=== PATIENT | male | born 1945 | race Caucasian/White ===

== ENCOUNTER → 2016-04-29 | Day surgery (SDC) | payer OTHER ==
[2016-04-27 07:41] VITALS: Ht 180.3 cm; Wt 101.4 kg
[~2016-04-29] VITALS: Ht 180.3 cm; Wt 101.4 kg
[~2016-04-29] MED LIST: ASPI325T39 PO; ATEN-173 PO; GLIP-199 PO; INSDGI SC; LIDOCAINE HCL 2% 2 ML VIAL (20MG/ML) ONE; LISI-725 PO; METF1TAB53 PO; NVLG SC; OMEGCAP2 PO; PROPOFOL IV EMULSION 10 MG/ML 20 ML VIAL IV ONE; SIMV80TA2 PO; SODIUM CHLORIDE 0.9% 500ML 500 ML IV ONE; ZNTT/150 PO
--- NOTE | 2016-04-29 09:22 | Endo History and Physical ---
History & Physical Date of Service: Apr 29, 2016. Chief Complaint: SCREENING FOR COLON CANCER, FAMILY HX-MOTHER HAD COLON CANCER Referring Physician: DR. PARMINDER LAO ([place] TE[place] AT [place]) History of Present Illness Screening colonoscopy Past Surgical History Hx Cardiac Surgery: Yes (HEART CATHS, STENTS X6, "BYPASS ALL STENTS") Hx Internal Defibrillator: No Hx Pacemaker: No Hx Abdominal Surgery: Yes (YANET) Hx of Implantable Prosthesis: No Hx Post-Op Nausea and Vomiting: No Hx Cancer Surgery: No Hx Thoracic Surgery: No Hx Orthopedic: Yes (LT ULNAR NERVE REPAIR) Hx Urinary Tract Surgery: No Family History Colon CA Social History Smoking Status: Former Smoker Hx Substance Use: No Hx Alcohol Use: Yes (RARELY) Allergies Coded Allergies: No Known Allergies (Verified , 04/29/16) Current Medications Reported Home Medications Medications Dose Route/Sig Max Daily Dose Days Date Category Aspirin Ec (Aspirin) 325 Mg Tab 325 Mg PO DAILY 04/27/16 Reported Fish Oil ([place]-3 Fatty Acids) 1 Cap Cap 1 Tab PO QAM 04/27/16 Reported Lantus (Insulin Glargine) 100 Unit/Ml Inj 54 Units SC HS 04/27/16 Reported Novolog (Insulin Aspart) 100 Units/Ml Inj 2 Units SC TIDM 04/27/16 Reported Glipizide Er (Glipizide) 10 Mg Tab 1 Tab PO BID 04/27/16 Reported Zocor (Simvastatin) 80 Mg Tab 80 Mg PO HS 04/27/16 Reported Tenormin (Atenolol) 25 Mg Tab 25 Mg PO QAM 04/27/16 Reported Zantac (Ranitidine HCl) 150 Mg Tab 150 Mg PO BID 04/27/16 Reported Zestril (Lisinopril) 20 Mg Tab 20 Mg PO QAM 04/27/16 Reported Glucophage Ext Rel (Metformin Hcl) 1,000 Mg Tab 1,000 Mg PO BID 04/27/16 Reported Vital Signs Weight (Kilograms): 101.36 Height (Feet): 5 Height (Inches): 11 Date Time Temp Pulse Resp B/P Pulse Ox O2 Delivery O2 Flow Rate FiO2 04/29/16 08:40 36.4 74 18 161/76 97 Room Air Physical Exam General Appearance: no apparent distress Respiratory/Chest: Auscultation: breath sounds normal Cardiovascular: Heart Auscultation: RRR Abdomen: Inspection & Palpation: soft, no masses Assessment and Plan stable for colonoscopy
--- NOTE | 2016-04-29 09:54 | Discharge Instructions ---
Endoscopy Patient Instructions Date / Procedure(s) Performed Apr 29, 2016. Allergy Information Coded Allergies: No Known Allergies (Verified , 04/29/16) Discharge Date / Findings Apr 29, 2016. small colon polyps. Medication Instructions Stopped Medication(s): ASPIRIN-LAST DOSE 04/29/16 METFORMIN-LAST DOSE 04/26/16 AT 2100 Provider Instructions Activity Restrictions - No exercising or heavy lifting for 24 hours. - Do not drink alcohol the day of the procedure. - Do not drive a car or operate machinery until the day after the procedure. - Do not make any important decisions or sign important papers in 24 hours after the procedure. Following Day: - Return to full activity which may include returning to work/school. Diet Start your diet with liquids and light foods (jello, soup, juice, toast). Then eat your usual diet if not nauseated. Treatment For Common After Affects For mild abdominal pain, bloating, or excessive gas: - Rest - Eat lightly - Lie on right side Follow-Up Information Follow-up with DR. PARMINDER LAO ([facility] AT [place]) as scheduled Anesthesia Information What You Should Know You have had a procedure that required some medicine to reduce anxiety and discomfort. This treatment is called moderate sedation. After receiving the treatment, you may be sleepy, but you will be able to breathe on your own. The effects of the treatment may last for several hours. Follow these instructions along with Activity/Diet recommendations noted above: * Do NOT do anything where dizziness or clumsiness would be dangerous. * Rest quietly at home today, then you can be up and about tomorrow. * Have a responsible person stay with you the rest of today. * You may have had an I.V. today. If so, you may take the dressing off later today. Recommendations Call your doctor if: * Trouble breathing * Continuous vomiting for more than 24 hours * Temperature above 101 degrees * Severe abdominal pain or bloating * Pain not relieved by pain medicine ordered * There is increased drainage or redness from any incision * A large amount of rectal bleeding greater than 2-3 tablespoons. (If you had a polyp/s removed or have hemorrhoids, a small amount of blood - from the rectum is to be expected.) * You have any unanswered questions or concerns. IN THE EVENT OF A SERIOUS EMERGENCY, GO TO THE NEAREST EMERGENCY ROOM Your discharge instructions were prepared by provider Fredi Llanos. Patient Instructions Signature Page Roberth Partner Patient (or Guardian) Signature/Date: I have read and understand the instructions given to me by my caregivers. Caregiver/RN/Doctor Signature/Date: The above-named patient and/or guardian has received patient instructions on this date. + Original Patient Signature Page (only) stays with chart. Please make copy for patient.
--- NOTE | 2016-04-29 10:02 | GI REPORT ---
Procedure Date: 04/29/2016 8:47 AM Procedure: Colonoscopy Indications: Screening for colorectal malignant neoplasm Medicines: See the Anesthesia note for documentation of the administered medications Complications: No immediate complications. Estimated Blood Loss: Estimated blood loss was minimal. Procedure: Pre-Anesthesia Assessment: - Prior to the procedure, a History and Physical was performed, and patient medications, allergies and sensitivities were reviewed. The patient's tolerance of previous anesthesia was reviewed. - The risks and benefits of the procedure and the sedation options and risks were discussed with the patient. All questions were answered and informed consent was obtained. - Patient identification and proposed procedure were verified prior to the procedure by the physician and the nurse. The procedure was verified in the pre-procedure area. - Pre-procedure physical examination revealed no contraindications to sedation. - After reviewing the risks and benefits, the patient was deemed in satisfactory condition to undergo the procedure. After I obtained informed consent, the scope was passed under direct vision. Throughout the procedure, the patient's blood pressure, pulse, and oxygen saturations were monitored continuously. The On-site loaner was introduced through the anus and advanced to the cecum, identified by appendiceal orifice and ileocecal valve. The colonoscopy was performed without difficulty. The patient tolerated the procedure well. The quality of the bowel preparation was good. Findings: The perianal and digital rectal examinations were normal. A 4 mm polyp was found in the ascending colon. The polyp was sessile. The polyp was removed with a cold snare. Resection and retrieval were complete. Verification of patient identification for the specimen was done by the physician and nurse using the patient's name and medical record number. Estimated blood loss was minimal. A 3 mm polyp was found at 40 cm proximal to the anus. The polyp was sessile. The polyp was removed with a cold snare. Resection and retrieval were complete. Verification of patient identification for the specimen was done by the physician and nurse using the patient's name and medical record number. Estimated blood loss was minimal. Multiple small-mouthed diverticula were found in the sigmoid colon, in the descending colon and in the ascending colon. No additional abnormalities were found on retroflexion. Impression: - One 4 mm polyp in the ascending colon, removed with a cold snare. Resected and retrieved. - One 3 mm polyp at 40 cm proximal to the anus, removed with a cold snare. Resected and retrieved. - Diverticulosis in the sigmoid colon, in the descending colon and in the ascending colon. Recommendation: - Await pathology results. - Discharge patient to home. Fredi Llanos M.D. Fredi Llanos MD 04/29/2016 10:01:16 AM This report has been signed electronically. Note Initiated On: 04/29/2016 8:47 AM
[2016-04-29 10:23] VITALS: BP 185/79; PULSE 67; O2SAT 97
--- NOTE | 2016-04-29 10:45 | Anesthesiology Progress Note ---
Anesthesia Post Op Note Date & Time Apr 29, 2016 at 10:44 Vital Signs Pain Intensity: 0 Vital Signs Past 12 Hours Date Time Temp Pulse Resp B/P Pulse Ox O2 Delivery O2 Flow Rate FiO2 04/29/16 10:23 67 16 185/79 97 Room Air 04/29/16 10:19 66 188/82 04/29/16 10:12 68 190/66 04/29/16 10:08 72 16 190/80 98 Room Air 04/29/16 09:53 67 16 103/51 96 Room Air 04/29/16 08:40 36.4 74 18 161/76 97 Room Air Notes Mental Status: alert / awake / arousable, participated in evaluation Pt Amnestic to Procedure: Yes Nausea / Vomiting: adequately controlled Pain: adequately controlled Airway Patency, RR, SpO2: stable & adequate BP & HR: stable & adequate Hydration State: stable & adequate Anesthetic Complications: no major complications apparent
== END | disposition home or self-care (01) ==
LOC: C.GI 07:45
PROVIDERS: ATTEND Internal Medicine Gastroenterology
DX: Z12.11 Encounter for screening for malignant neoplasm of colon (principal); Z80.0 Family history of malignant neoplasm of digestive organs; D12.2 Benign neoplasm of ascending colon; K57.90 Diverticulosis of intestine, part unspecified, without perforation or abscess without bleeding; Z98.890 Other specified postprocedural states; Z95.5 Presence of coronary angioplasty implant and graft; Z87.891 Personal history of nicotine dependence; Z79.82 Long term (current) use of aspirin; Z79.4 Long term (current) use of insulin

== ENCOUNTER 2019-08-07 20:51 | Inpatient (IN) ==
[2019-08-07 21:43] LABS: Basophils # (auto) 0.02 K/uL (0-0.2); Basophils % (auto) 0.1 %; Eosinophils # (auto) 0.08 K/uL (0-0.5); Eosinophils % (auto) 0.5 %; Hematocrit (blood only) 31.2 % (42-52); Hemoglobin 10.6 g/dL (14.0-18.0); Immature Granulocytes # (auto) 0.05 K/uL (0.00-0.02); Immature Granulocytes % (auto) 0.3 %; Lymphocytes # (auto) 1.05 K/uL (1.2-3.4); Lymphocytes % (auto) 6.5 %; Mean Corpuscular Volume 82.3 fL (80-100); Mean Platelet Volume 9.7 fL (7.4-10.4); Monocytes # (auto) 0.94 K/uL (0.11-0.59); Monocytes % (auto) 5.8 %; Neutrophils # (auto) 14.04 K/uL (1.4-6.5); Neutrophils % (auto) 86.8 %; Platelet Count 436 K/uL (130-400); RDW Coefficient of Variation 13.8 % (11.5-14.5); Red Blood Count 3.79 M/uL (4.7-6.1); White Blood Count 16.18 K/uL (4.8-10.8)
[2019-08-07] MEDS ORDERED: ONDANSETRON INJ 2 MG/ML 2 ML VIAL IV STA (21:49)
[2019-08-07 22:00] LABS: Albumin Level 2.6 gm/dl (3.4-5.0); Calcium 9.9 mg/dl (8.5-10.1); Est GFR (African American) 48.4; Est GFR (Non-African American) 41.8; Potassium 4.5 mmol/L (3.5-5.1)
[2019-08-07 22:03] LABS: Albumin Globulin Ratio 0.4 (0.9-2); Bilirubin,Total 0.3 mg/dl (0.2-1); Globulin 5.8 gm/dl (2.5-4.0); Total Protein 8.4 gm/dl (6.4-8.2)
[2019-08-07] MEDS ORDERED: ACETAMINOPHEN 1,000 MG/100 ML VIAL IV STA (22:05)
[2019-08-07] MEDS ORDERED: SODIUM CHLORIDE 0.9% 1000ML 1,000 ML IV STA (22:05)
[2019-08-07] MEDS ORDERED: SODIUM CHLORIDE 0.9% 1000ML 500 ML IV ONE ×2 (22:05→23:26)
[2019-08-07 22:19] LABS: Appearance Urine Clear (Clear); Bacteria Urine Automated Negative (Negative); Bilirubin Urine Negative (Negative); Blood Urine Negative (Negative); Color Urine Dark Yellow; Epithelial Cell Urine Auto 0-5 /lpf (0-5); Glucose Urine UA Negative (Negative); Ketones Urine Trace (Negative); Leukocyte Esterase Urine Negative (Negative); Nitrite Urine Negative (Negative); Protein Urine Trace (Negative); RBC Urine Automated 0-4 /hpf (0-4); Specific Gravity Urine 1.022 (1.000-1.030); Urobilinogen Urine Negative (Negative); pH Urine 5.5 (4.5-7.5)
[2019-08-07] MEDS: HYDROmorphone INJ 0.5 MG/0.5 ML SYR IV PRN ×2 (22:41→23:29)
--- NOTE | 2019-08-07 23:06 | CT Scan Report ---
CT abd pelvis wo con CT DOSE: 782.21 mGy.cm HISTORY: fever, abd pain, right, decreased urinary output TECHNIQUE: Multiaxial CT images of the abdomen and pelvis were performed without contrast. A dose lo wering technique was utilized adhering to the principles of ALARA. COMPARISON STUDY: None. FINDINGS: Small parenchymal infiltrate right lung base. Mild reactive pleural thickening right base. Minimal parenchymal infiltrative change left base. Evaluation of the bony structures show severe degenerative change of the low thoracic and lumbar spin e. There are findings of erosive change at the T10-T11 level. There is joint destructive changes of the vertebral endplates. This is suggestive of discitis with associated osteomyelitis. There is an associ ated paravertebral soft tissue component. Prior cholecystectomy. Liver spleen and pancreas are unremarkable unremarkable. Kidneys are negative for hydronephrosis. Nonobstructive bowel pattern. Scattered colonic diverticuli. No evidence for diverticulitis. Patient gives history of appendectomy although a normal appendix is seen. Bladder is midline. No free fluid within the pelvic cul-de-sac. IMPRESSION: 1. Destructive process involving the T10-T11 level of the low thoracic region. 2. There is evidence for destructive change of the vertebral endplates, as well as a surrounding soft tissue mass at this site. 2. The appearance is suggestive of discitis with secondary osteomyelitis. 3. Bibasilar parenchymal infiltrates. 4. Scattered colonic diverticulosis with no evidence for diverticulitis. 5. Prior cholecystectomy. ACT 112: Negative or not required by law. The above report was generated using voice recognition software. It may contain grammatical, syntax or spelling errors. Electronically signed by: Dale Dasilva M.D. 08/07/2019 11:04 PM
[2019-08-07] MEDS ORDERED: VANCOMYCIN CONSULT ACTIVE PRN (23:17)
[2019-08-07] MEDS ORDERED: CEFEPIME 2,000 MG/20 ML VIAL IV STA (23:17)
[2019-08-07] MEDS ORDERED: VANCOMYCIN HCL 2,000 MG in SODIUM CHLORIDE 0.9% 500 ML IV ONE (23:17)
--- NOTE | 2019-08-07 23:41 | Emergency Department Note ---
Impression & Plan Osteomyelitis of thoracic spine, Pneumonia, Leukocytosis, Fever ED Provider Note NAME: FELIX Lama PARTNER AGE: 74 SEX: M ARRIVES VIA: Ambulance INFORMANT: [Patient] ED PROVIDER(S): Demetrius Staton MD CHIEF COMPLAINT: Back pain PLAN: Disposition: Admitted Condition: [Good] MEDICAL DECISION MAKING: The patient presented emerge apartment with back and flank pain. He also had fever. Patient underwent a work-up. He was found to have osteomyelitis of the spine around T10/11. He also had infiltrates noted. The patient does not note any significant respiratory symptoms but does have a mild cough. He has a leukocytosis and elevated inflammatory markers on blood work. Blood cultures and lactate were performed. The patient was given broad-spectrum antibiotics with vancomycin and cefepime. He was treated with IV Dilaudid and Zofran for pain control. Consultation was made with internal medicine, Dr. Goldy Coronel. Patient was evaluated in ER for further management. Triage Nursing notes reviewed and agree them. Vital Signs: reviewed and remarkable for fever Differential diagnosis: Musculoskeletal, disc herniation, fracture, metastatic disease, cord compression, discitis, osteomyelitis sciatica, cauda equina, infection, aortic disease, renal colic, gastrointestinal, as well as other pathologies. ER treatment provided: IV Tylenol IV vancomycin IV cefepime IV Dilaudid IV Zofran Normal saline hydration Diagnostics interpreted by me: Cardiac Monitoring: Cardiac monitoring ordered by me: The patient was placed on continuous cardiac monitoring and observed. It revealed a normal sinus rhythm at 60 beats per minute without ectopy or evidence of dysrhythmia. Laboratory studies: [See below] moderate leukocytosis on CBC. Dehydration on chemistry panel. The patient has no UTI on urinalysis. There is elevated inflammatory markers. Imaging studies: Imaging of the abdomen pelvis was concerning for osteomyelitis of the thoracic spine as well as infiltrates in the bottom of the lung wang. No acute intra- abdominal process noted. I refer you to the EMR for further details. Consultation(s): [facility] internal medicine, Dr. Goldy Tobin. HPI:The patient is a 74 year old male who presents to the Emergency Room with complaints of back pain. This started several weeks ago and is worsening. The patient also notes the following associated symptoms, right flank pain, decreased urination, minimal cough. The patient has found no relieving f actors. Current pain is rated as 8/10. Patient states [facility] and [facility] did not find any problems. He denies any sick contacts. No contact with anyone at risk for coronavirus. Pt denies LOC, headache, fevers, chills, diaphoresis, visual changes, neck pain, chest pain, breathing difficulties, nausea, vomiting, abdominal pain, back pain, melena, hematochezia, urinary symptoms, numbness, weakness, lymphadenopathy, rash, or other complaints. ROS: See above HPI for pertinent positives & negatives. A total of [10] systems reviewed and were otherwise negative. PAST MEDICAL HISTORY:[See Below] hypertension, diabetes PAST SURGICAL HISTORY:[See Below] FAMILY HISTORY:[See Below] SOCIAL HISTORY:[See Below] lives with family HOME MEDICATIONS:[See Below] ALLERGIES:[See Below] VITALS:[See Below] PHYSICAL EXAMINATION: GENERAL: Awake, alert, uncomfortable-appearing, in mild distress HENT: Normocephalic, atraumatic. Oropharynx unremarkable. EYES: Normal conjunctiva. Sclera non-icteric. NECK: Inspection normal. Non-tender. Supple. No nuchal rigidity. FROM. No masses. RESPIRATORY: Clear to auscultation. No wheezes. No rales. Normal respiratory effort. CARDIAC: Normal rate. Normal rhythm. No murmurs. No rubs. Extremities warm and well perfused. Pulses equal. No JVD. GI: Soft, non-distended. No tenderness to palpation. No rebound or guarding. No masses. RECTAL: Deferred. MUSCULOSKELETAL: Atraumatic. Chest examination reveals no tenderness. The back is symmetrical on inspection without obvious abnormality. Tenderness in the low thoracic region. There is right CVA tenderness to palpation. No joint edema. LOWER EXTREMITIES: Calves are equal size bilaterally and non-tender. No edema. No discoloration. NEURO: Normal sensorium. No sensory or motor deficits noted. No saddle anesthesia. SKIN: No rash or jaundice noted. 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 CAD (coronary artery disease) Hypertension Surgical History (Updated 08/08/19 @ 00:19 by Ji Garcia MD) Hx of CABG Social History Feels Safe at Home: Yes Smoking Status: Never smoker Allergies Allergies Allergy/AdvReac Type Severity Reaction Status Date / Time No Known Allergies Allergy Verified 08/07/19 21:34 Home Meds Home Medications Medication Instructions Recorded Confirmed aspirin 325 mg PO DAILY 08/07/19 08/07/19 atenolol 25 mg PO DAILY 08/07/19 08/07/19 atorvastatin 40 mg PO DAILY 08/07/19 08/07/19 chlorthalidone 12.5 mg PO DAILY 08/07/19 08/07/19 glipizide 10 mg PO DAILY 08/07/19 08/07/19 insulin glargine [Lantus Solostar 35 unit SUBCUT HS 08/07/19 08/07/19 U-100 Insulin] lidocaine 2 patch TOPICAL DAILY 08/07/19 08/07/19 lisinopril 20 mg PO DAILY 08/07/19 08/07/19 metformin 1,000 mg PO BID 08/07/19 08/07/19 nut.tx.gluc.intol,lac-free,soy 1 ea PO DAILY 08/07/19 08/07/19 [Glucerna] omega 7-biv-coi-fish oil [Fish Oil] 1 cap PO BID 08/07/19 08/07/19 ranitidine HCl 150 mg PO BID 08/07/19 08/07/19 tizanidine 4 mg PO Q12 PRN 08/07/19 08/07/19 tramadol 100 mg PO Q6H PRN 08/07/19 08/07/19 triamcinolone acetonide 1 applic TOPICAL DAILY 08/07/19 08/07/19 Results & Data (ED) Vital Signs Vital Signs - 24 hr 08/07/19 21:01 08/07/19 21:30 08/07/19 21:32 Temperature 37.8 C H Temperature Source Oral Pulse Rate 86 86 74 Pulse Rate from SpO2 Sensor 74 Pulse Rhythm Regular Respiratory Rate 26 H 26 H 23 Respiratory Effort / Characteristics Non-Labored Respiratory Depth Normal Respiratory Pattern Tachypnea Blood Pressure 118/74 136/71 Blood Pressure Mean 88 105 Pulse Oximetry 98 98 98 Oxygen Delivery Method Room Air Room Air Sepsis Recent Fever Within 48 Hours No Sepsis Action Taken by Nursing No Action Required 08/07/19 22:39 Temperature Temperature Source Pulse Rate 69 Pulse Rate from SpO2 Sensor 70 Pulse Rhythm Respiratory Rate 19 Respiratory Effort / Characteristics Respiratory Depth Respiratory Pattern Blood Pressure 135/68 Blood Pressure Mean 93 Pulse Oximetry 98 Oxygen Delivery Method Room Air Sepsis Recent Fever Within 48 Hours Sepsis Action Taken by Nursing Laboratory Data Result diagrams: 08/07/19 21:30 08/07/19 21:30 Lab Results 08/07/19 08/07/19 08/07/19 Range/Units 21:30 21:30 21:30 WBC 16.18 H (4.8-10.8) K/uL RBC 3.79 L (4.7-6.1) M/uL Hgb 10.6 L (14.0-18.0) g/dL Hct 31.2 L (42-52) % MCV 82.3 (80-100) fL MCH 28.0 (25-34) pg MCHC 34.0 (32-36) g/dL RDW Std Deviation 42.0 (36.4-46.3) fL RDW Coeff of Shailesh 13.8 (11.5-14.5) % Plt Count 436 H (130-400) K/uL MPV 9.7 (7.4-10.4) fL Immature Gran % (Auto) 0.3 % Neut % (Auto) 86.8 % Lymph % (Auto) 6.5 % [place] % (Auto) 5.8 % Eos % (Auto) 0.5 % Baso % (Auto) 0.1 % Immature Gran # (Auto) 0.05 H (0.00-0.02) K/uL Neut # (Auto) 14.04 H (1.4-6.5) K/uL Lymph # (Auto) 1.05 L (1.2-3.4) K/uL [place] # (Auto) 0.94 H (0.11-0.59) K/uL Eos # (Auto) 0.08 (0-0.5) K/uL Baso # (Auto) 0.02 (0-0.2) K/uL ESR > 90 H (0-14) mm/hr Sodium 132 L (136-145) mmol/L Potassium 4.5 (3.5-5.1) mmol/L Chloride 96 L (98-107) mmol/L Carbon Dioxide 28 (21-32) mmol/L Anion Gap 8.0 (3-11) BUN 50 H (7-18) mg/dl Creatinine 1.61 H (0.6-1.4) mg/dl Est Cr Clr Drug Dosing -7.0 ml/min Est GFR ( Amer) 48.4 Est GFR (Non-Af Amer) 41.8 BUN/Creatinine Ratio 31.0 H (10-20) Glucose 192 H (70-99) mg/dl Lactate (0.4-2.0) mmol/L Calcium 9.9 (8.5-10.1) mg/dl Total Bilirubin 0.3 (0.2-1) mg/dl AST 15 (15-37) U/L ALT 19 (12-78) U/L Alkaline Phosphatase 88 (45-117) U/L C-Reactive Protein 14.00 H (0-0.29) mg/dl Total Protein 8.4 H (6.4-8.2) gm/dl Albumin 2.6 L (3.4-5.0) gm/dl Globulin 5.8 H (2.5-4.0) gm/dl Albumin/Globulin Ratio 0.4 L (0.9-2) Urine Color Urine Appearance (Clear) Urine pH (4.5-7.5) Ur Specific Mckenna (1.000-1.030) Urine Protein (Negative) Urine Glucose (UA) (Negative) Urine Ketones (Negative) Urine Blood (Negative) Urine Nitrite (Negative) Urine Bilirubin (Negative) Urine Urobilinogen (Negative) Ur Leukocyte Esterase (Negative) Urine WBC (Auto) (0-5) /hpf Urine RBC (Auto) (0-4) /hpf U Hyaline Cast (Auto) (0-5) /lpf U Epithel Cells (Auto) (0-5) /lpf Urine Bacteria (Auto) (Negative) 08/07/19 08/07/19 Range/Units 21:52 23:41 WBC (4.8-10.8) K/uL RBC (4.7-6.1) M/uL Hgb (14.0-18.0) g/dL Hct (42-52) % MCV (80-100) fL MCH (25-34) pg MCHC (32-36) g/dL RDW Std Deviation (36.4-46.3) fL RDW Coeff of Shailesh (11.5-14.5) % Plt Count (130-400) K/uL MPV (7.4-10.4) fL Immature Gran % (Auto) % Neut % (Auto) % Lymph % (Auto) % [place] % (Auto) % Eos % (Auto) % Baso % (Auto) % Immature Gran # (Auto) (0.00-0.02) K/uL Neut # (Auto) (1.4-6.5) K/uL Lymph # (Auto) (1.2-3.4) K/uL [place] # (Auto) (0.11-0.59) K/uL Eos # (Auto) (0-0.5) K/uL Baso # (Auto) (0-0.2) K/uL ESR (0-14) mm/hr Sodium (136-145) mmol/L Potassium (3.5-5.1) mmol/L Chloride (98-107) mmol/L Carbon Dioxide (21-32) mmol/L Anion Gap (3-11) BUN (7-18) mg/dl Creatinine (0.6-1.4) mg/dl Est Cr Clr Drug Dosing ml/min Est GFR ( Amer) Est GFR (Non-Af Amer) BUN/Creatinine Ratio (10-20) Glucose (70-99) mg/dl Lactate 1.4 (0.4-2.0) mmol/L Calcium (8.5-10.1) mg/dl Total Bilirubin (0.2-1) mg/dl AST (15-37) U/L ALT (12-78) U/L Alkaline Phosphatase (45-117) U/L C-Reactive Protein (0-0.29) mg/dl Total Protein (6.4-8.2) gm/dl Albumin (3.4-5.0) gm/dl Globulin (2.5-4.0) gm/dl Albumin/Globulin Ratio (0.9-2) Urine Color Dark Yellow Urine Appearance Clear (Clear) Urine pH 5.5 (4.5-7.5) Ur Specific Mckenna 1.022 (1.000-1.030) Urine Protein Trace H (Negative) Urine Glucose (UA) Negative (Negative) Urine Ketones Trace H (Negative) Urine Blood Negative (Negative) Urine Nitrite Negative (Negative) Urine Bilirubin Negative (Negative) Urine Urobilinogen Negative (Negative) Ur Leukocyte Esterase Negative (Negative) Urine WBC (Auto) 1-5 (0-5) /hpf Urine RBC (Auto) 0-4 (0-4) /hpf U Hyaline Cast (Auto) 5-10 H (0-5) /lpf U Epithel Cells (Auto) 0-5 (0-5) /lpf Urine Bacteria (Auto) Negative (Negative) Administered Medications Hydromorphone HCl (Dilaudid) 0.5 mg IV Q15M PRN PRN Reason: Pain Stop: 08/21/19 21:48 Last Admin: 08/07/19 23:29 Dose: 0.5 mg Documented by: [id number] Admin: 08/07/19 22:41 Dose: 0.5 mg Documented by: [id number] Vancomycin HCl 2,000 mg/ (Sodium Chloride) 540 mls @ 200 mls/hr IV NOW ONE Stop: 08/08/19 01:58 Last Admin: 08/07/19 23:31 Dose: 200 mls/hr Documented by: [id number] Discontinued Medications Sodium Chloride (Nss 1000ml) 500 mls @ 999 mls/hr IV .Q31M ONE Stop: 08/07/19 22:35 Last Infusion: 08/07/19 23:34 Dose: 0 mls/hr Documented by: [id number] Admin: 08/07/19 22:41 Dose: 999 mls/hr Documented by: [id number] Acetaminophen (Ofirmev) 1,000 mg in 100 mls @ 400 mls/hr IV NOW STA Stop: 08/07/19 22:19 Last Infusion: 08/07/19 23:20 Dose: 0 mls/hr Documented by: [id number] Admin: 08/07/19 22:41 Dose: 400 mls/hr Documented by: [id number] Cefepime HCl (Maxipime) 2,000 mg in 20 mls @ 5 mls/min IV NOW STA; Protocol Stop: 08/07/19 23:20 Last Admin: 08/08/19 00:15 Dose: 5 mls/min Documented by: [id number] Ondansetron HCl (Zofran) 4 mg IV NOW STA Stop: 08/07/19 21:50 Last Admin: 08/07/19 22:41 Dose: 4 mg Documented by: [id number] Discharge Plan Visit Data Chief Complaint: Back Injury/Pain Stated Complaint: back pain ED Provider: Demetrius Staton Discharge Problem: Osteomyelitis of thoracic spine, Pneumonia, Leukocytosis, Fever Forms Stand Alone Forms: [facility] Prescriptions Prescriptions: No Action aspirin 325 mg Tablet 325 mg PO DAILY RF: 0 atenolol 25 mg tablet 25 mg PO DAILY RF: 0 triamcinolone acetonide 0.1 % Ointment 1 applic TOPICAL DAILY RF: 0 omega 0-qfa-obq-fish oil [Fish Oil] 1,000 mg (120 mg-180 mg) Capsule 1 cap PO BID RF: 0 atorvastatin 80 mg Tablet 40 mg PO DAILY RF: 0 tizanidine 4 mg Tablet 4 mg PO Q12 PRN (Reason: Muscle Spasm) RF: 0 lisinopril 20 mg Tablet 20 mg PO DAILY RF: 0 glipizide 10 mg Tablet 10 mg PO DAILY RF: 0 chlorthalidone 25 mg Tablet 12.5 mg PO DAILY RF: 0 tramadol 50 mg Tablet 100 mg PO Q6H PRN (Reason: Pain) RF: 0 metformin 1,000 mg tablet 1,000 mg PO BID RF: 0 ranitidine HCl 150 mg Tablet 150 mg PO BID RF: 0 lidocaine 5 % Adhesive Patch,Medicated 2 patch TOPICAL DAILY RF: 0 Glucerna Liquid 1 ea PO DAILY RF: 0 Lantus Solostar U-100 Insulin 100 unit/mL (3 mL) Insulin Pen 35 unit SUBCUT HS RF: 0
--- NOTE | 2019-08-08 00:21 | History & Physical Report ---
Date of Service August 08, 2019 Assessment & Plan (1) Osteomyelitis of thoracic spine: Roberth Aviles is a 74-year-old male with a past medical history of coronary artery disease status post bypass graft, hypertension, insulin- dependent diabetes who presents with increasing 810/10 back pain after fall 1 week ago with normal x-rays. CT on admission to the emergency department shows T10-T11 vertebral plate damage and edema with surrounding findings concerning for discitis and osteomyelitis. Back pain 2/2 T10-T11 discitis and secondary osteomyelitis - Suspect pt seeded during gangrene foot infection several months ago with T2DM- ID. DDx include discitis 2/[address]-A/P: There are findings of erosive change at the T10-T11 level. There is joint destructive changes of the vertebral endplates. This is suggestive of discitis with associated osteomyelitis. There is an associated paravertebral soft tissue component. -Patient given vancomycin and cefepime empiric in ED -Continue cefepime 2 g every 8 hours dose reduced to 2 g every 12 hours for renal function Convert vancomycin to daptomycin for renal function, pharmacy consult placed Ortho consulted No known orthopedic hardware Hydromorphone 0.5 mg - 1 mg scaled pain control ESR/CRP acutely elevated. Repeat CRP AM for trend CBC daily - BCx2 pending - Uric acid pending - Continue antisposmotic tizanidine 4mg BID PRN KEO No baseline on file Patient denies history of chronic kidney disease Creatinine acutely elevated to 1.61 IV fluids as below Hold SCRAP CHARGER metformin and lisinopril BMP daily Type 2 diabetes mellitus on insulin Hold SCRAP CHARGER metformin, glipizide - A1C pending Does reduce to 12u lantus BID for renal function - SSI CF 30, Ratio 1:10 Coronary artery disease with history of bypass graft No cardiac symptoms at time of admission Per patient, had sx at [facility]. Pending record transfer. Continue aspirin, dose reduced to 81 mg Continue atenolol 25 mg p.o. daily Continue atorvastatin 40 mg daily Continue chlorthalidone 12.5 mg daily Hold lisinopril for kidney function Nuclear stress test on file, although was not completed for unclear reasons with no additional note. EKG ordered for patient as baseline. Dry Cough - Denies sick exposures, recent travel, fevers, productive cough Patient endorses new intermittent cough in the last week without fever, chills, sweats Denies tobacco use, or history of COPD CXR ordered On broad antibiotic coverage as above for osteo, dapto without lung coverage. If MRSA positive --> vanco - MRSA nare pending FEN: NSS 125 cc/h DVT prophylaxis: Heparin 5000 units every 8 hours Diet: Heart healthy Status: Full code Disposition: Admit to medical/surgical (2) Leukocytosis: (3) Fever: (4) SOB (shortness of breath): (5) CAD (coronary artery disease): (6) Hypertension: History of Present Illness . Chief Complaint: Back pain Primary Care Provider: Dorothy Rico Lepe is a 74-year-old male with a past medical history of coronary artery disease with bypass graft, insulin-dependent diabetes mellitus, and hypertension who presents with back and flank pain which is acutely worsened for 1 week and which was proceeded by a fall. Abdomen and pelvis CT shows T10-T11 vertebral plate damage with surrounding edema suggestive of discitis with osteomyelitis. Hai reports he was in his otherwise normal state of health until about 1 week ago when he had a mechanical fall. He felt like after his fall he had an increase in pain, and slowly developed excruciating 10 out of 10 pain which has mildly improved with heat packs but overall continues to be very painful and limiting his movement. He saw a [place] physician who performed an x-ray which did not show any acute findings, but was advised to come to the emergency department after his pain continued to worsen. He endorses feeling intermittently feverish and chilly in the last week. He denies chest pain, chest pressure, palpitations . He endorses an intermittent cough in the last week without sputum production or shortness of breath. He denies urinary retention, but endorses decreased urinary volume over the last few days. Denies dysuria. Acute/new weakness or numbness and tingling in his legs but notes his movement is limited by pain. He denies abdominal pain, nausea, vomiting, diarrhea, constipation. He has not had any recent travel. He reports he does not remember his medications, but only that his short acting insulin was stopped by his primary care provider recently. Medical history: Hypertension, insulin-dependent diabetes, coronary artery disease with CABG Allergies: No known drug allergies Surgical history: CABG as above Medications: Patient is a poor historian of medications. Per med rec is on low-dose aspirin, atenolol, chlorthalidone, glipizide, insulin glargine, lisinopril, metformin, ranitidine, tizanidine, tramadol Social: Reports he lives at home with his Lolly, able to ambulate prior to admission independently. Denies alcohol, tobacco, and recreational drug use. CODE STATUS: Full code. Patient reports he would want his Lolly to be his decision maker in emergency. Allergies Allergy/AdvReac Type Severity Reaction Status Date / Time No Known Allergies Allergy Verified 08/07/19 21:34 Home Medications Home Medications Medication Instructions Recorded Confirmed Type aspirin 325 mg PO DAILY 08/07/19 08/07/19 History atenolol 25 mg PO DAILY 08/07/19 08/07/19 History atorvastatin 40 mg PO DAILY 08/07/19 08/07/19 History chlorthalidone 12.5 mg PO DAILY 08/07/19 08/07/19 History glipizide 10 mg PO DAILY 08/07/19 08/07/19 History insulin glargine [Lantus Solostar 35 unit SUBCUT HS 08/07/19 08/07/19 History U-100 Insulin] lidocaine 2 patch TOPICAL DAILY 08/07/19 08/07/19 History lisinopril 20 mg PO DAILY 08/07/19 08/07/19 History metformin 1,000 mg PO BID 08/07/19 08/07/19 History nut.tx.gluc.intol,lac-free,soy 1 ea PO DAILY 08/07/19 08/07/19 History [Glucerna] omega 3-dbh-ykq-fish oil [Fish Oil] 1 cap PO BID 08/07/19 08/07/19 History ranitidine HCl 150 mg PO BID 08/07/19 08/07/19 History tizanidine 4 mg PO Q12 PRN 08/07/19 08/07/19 History tramadol 100 mg PO Q6H PRN 08/07/19 08/07/19 History triamcinolone acetonide 1 applic TOPICAL DAILY 08/07/19 08/07/19 History Past Med/Surg History Medical History (Updated 08/08/19 @ 00:19 by Ji Garcia MD) 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 ENT: Denies ear pain, sore throat, sinus pain. Endorses that he is extremely hard of hearing at baseline and requires hearing aids. Cardiovascular: Denies Chest pain, chest pressure, palpitations, extremity swelling Respiratory: Denies shortness of breath, difficulty breathing. Intermittent cough as noted in HPI. Gastrointestinal: Denies abdominal pain, nausea, vomiting, constipation, diarrhea Genitourinary: Denies pain with urination, urinary urgency, urinary frequency. Denies urinary retention but Dors is decreased urinary volume. Musculoskeletal: Denies new focal weakness, does movement extremely limited by new right back pain. Integumentary:Denies rash, lesions, bruising Neurological: Denies headache, acute numbness/tingling, focal weakness Physical Exam Physical Exam: General: A&Ox3. NAD. Cooperative. Uncomfortable but nontoxic. HEENT: Atraumatic, normocephalic. Pupils equal and reactive to light and accommodation. No facial asymmetry. Pulm: CTAB A&P. -wheezes, -rales, -rhonchi. Symmetrical chest rise. No increase work of breathing. No respiratory distress. Cardiac: RRR, -mrg. Radial pulses intact and symmetrical. Abdominal: Nontender, nondistended, soft. BS present. MSK: Back is symmetrical without lesions/trauma. Low thoracic tenderness to palpation midline and right paraspinal aspect. Sensory: Light touch, pinprick intact in upper and low extremities without deficit or asymmetry. Strength: RUE: elbow flexion/extension, finger flexion/extension, delivery consultant strength, interosseous 5/5 LUE: elbow flexion/extension, finger flexion/extension, delivery consultant strength, interosseous 5/5 Right lower extremity: Ankle plantar flexion/dorsiflexion 5/5.Additional movement limited by back pain. Left lower extremity: Status post amputation of first and second digits, well- healing postsurgical incision without overlying tenderness or erythema. Ankle plantar flexion/dorsiflexion 5/5. Additional movement limited by back pain. Results & Data Results & Data ([facility]) Vital Signs (Past 12 Hours) Vital Signs Temp Pulse Resp BP Pulse Ox 08/07/19 22:39 69 19 135/68 98 08/07/19 21:32 74 23 136/71 98 08/07/19 21:30 86 26 H 98 08/07/19 21:01 37.8 C H 86 26 H 118/74 98 Supervising Physician Co-Signing Physician Notes Attending addendum: I have physically seen this patient, have supervised the medical residents activities, and agree with the H&P unless as otherwise noted. Assessment and Plan: T10-T11 discitis with osteomyelitis- History of gangrenous foot infection several months previously as possible seeding agent. Try to obtain culture results from previous hospital. Received vancomycin IV and cefepime IV empirically in the ED. Placed on daptomycin IV due to reduced renal function, and cefepime 2 g IV every 12 hours. Dilaudid 1 mg IV every 3 hours as needed severe pain. Follow blood cultures and sensitivities. Continue tizanidine 4 mg p.o. twice daily as needed for associated muscle spasm. MRI of thoracolumbar spine to further assess. No suggestion of pathologic process associated with malignancy. Orthopedic spine surgery consulted. Patient will need PICC line placement Remainder of orders and notations as noted. Resident Activity Tracking Resident Involvement: Resident Care Provided Care Provided: Adult [facility]
[2019-08-08] MEDS: HYDROmorphone INJ 0.5 MG/0.5 ML SYR IV PRN ×3 (01:36→21:51)
[2019-08-08] MEDS ORDERED: GLUCAGON FOR INJ 1 MG VIAL SQ PRN (01:55)
[2019-08-08] MEDS ORDERED: DAPTOMYCIN CONSULT ACTIVE PRN (01:55)
[2019-08-08] MEDS ORDERED: GLUCOSE 40% GEL 15 GM TUBE PO PRN (01:55)
[2019-08-08] MEDS ORDERED: HYDROmorphone INJ 1 MG/ML SYRINGE IV PRN (01:55)
[2019-08-08] MEDS ORDERED: CARBOHYDRATES FOR HYPOGLYCEMIA PO PRN (01:55)
[2019-08-08] MEDS ORDERED: DAPTOmycin 500 MG VIAL IV SCH (01:55)
[2019-08-08] MEDS ORDERED: DEXTROSE 50% 50 ML SYRINGE IV PRN (01:55)
[2019-08-08] MEDS ORDERED: GLUCOSE 10 TABS/TUBE PO PRN (01:55)
[2019-08-08] MEDS ORDERED: PATIENT'S HEIGHT AND/OR WEIGHT NEEDED SCH (02:15)
[2019-08-08 02:16] LABS: Uric Acid 7.6 mg/dl (2.6-7.2)
[2019-08-08] MEDS: SODIUM CHLORIDE 0.9% 1000ML 1,000 ML IV SCH ×3 (02:16→17:33)
[2019-08-08] MEDS: TIZANIDINE HCL 4 MG TABLET PO PRN (02:22)
[2019-08-08] MEDS ORDERED: PNEUMOCOCCAL ADMINISTRATION CHARGE ONE (03:21)
[2019-08-08] MEDS ORDERED: PNEUMOCOCCAL POLYSACCHARIDES 25 MCG/0.5 ML VIAL/SYR IM ONE (03:21)
[2019-08-08] MEDS ORDERED: INFLUENZA ADMINISTRATION CHARGE ONE (03:21)
[2019-08-08] MEDS ORDERED: INFLUENZA VACCINE HIGH DOSE 65+ 0.5 ML SYR IM ONE (03:21)
[2019-08-08 05:44] LABS: Hematocrit (blood only) 29.9 % (42-52); Hemoglobin 9.9 g/dL (14.0-18.0); Mean Corpuscular Hemoglobin 27.3 pg (25-34); Mean Corpuscular Hgb Conc 33.1 g/dL (32-36); Mean Corpuscular Volume 82.6 fL (80-100); Mean Platelet Volume 9.7 fL (7.4-10.4); Platelet Count 369 K/uL (130-400); RDW Coefficient of Variation 13.8 % (11.5-14.5); RDW Standard Deviation 42.1 fL (36.4-46.3); Red Blood Count 3.62 M/uL (4.7-6.1); White Blood Count 21.56 K/uL (4.8-10.8)
[2019-08-08 06:07] LABS: Basophils # (auto) 0.02 K/uL (0-0.2); Basophils % (auto) 0.1 %; Eosinophils # (auto) 0.04 K/uL (0-0.5); Eosinophils % (auto) 0.2 %; Immature Granulocytes # (auto) 0.06 K/uL (0.00-0.02); Immature Granulocytes % (auto) 0.3 %; Lymphocytes # (auto) 0.66 K/uL (1.2-3.4); Lymphocytes % (auto) 3.1 %; Monocytes # (auto) 0.33 K/uL (0.11-0.59); Monocytes % (auto) 1.5 %; Neutrophils # (auto) 20.45 K/uL (1.4-6.5); Neutrophils % (auto) 94.8 %
[2019-08-08 06:10] LABS: BUN Creatinine Ratio 27.4 (10-20); C Reactive Protein 12.5 mg/dl (0-0.29); Calcium 8.7 mg/dl (8.5-10.1); Creatinine Clr Calc Pharmacy 36.8 ml/min; Est GFR (African American) 42.6; Est GFR (Non-African American) 36.8
[2019-08-08] MEDS: HEPARIN SOD 5,000 UNIT/0.5 ML VIAL SQ SCH ×3 (06:41→21:46)
[2019-08-08 07:21] LABS: Estimated Average Glucose 163 mg/dl; Hemoglobin A1C 7.3 % (4.5-5.6)
--- NOTE | 2019-08-08 07:23 | XRay Report ---
XR chest 1V portable CLINICAL HISTORY: cough COMPARISON STUDY: No previous studies for comparison. FINDINGS: There are postsurgical changes of a midline sternotomy. The study is rotated. There is no f ailure. There is no lobar consolidation. Basilar opacities are likely atelectatic. Slight indistinctn ess of the left heart border, is likely related to prior surgery and rotation. There are no large ple ural effusions. Arthritic changes are present within the shoulders.[ IMPRESSION: 1. Rotated study 2. Basilar opacities statistically atelectatic 3. No evidence of failure ACT 112: Negative or not required by law. Electronically signed by: David Silva M.D. 08/08/2019 7:21 AM
[2019-08-08] MEDS: INSULIN ASPART 100 UNITS/ML 3 ML PEN SC SCH ×4 (08:49→21:46)
[2019-08-08] MEDS: DAPTOmycin 425 MG in SYRINGE 0 ML IV SCH (08:50)
[2019-08-08] MEDS: ATENOLOL 25 MG TABLET PO SCH (08:51)
[2019-08-08] MEDS: INSULIN GLARGINE SOLOSTAR 100 UNITS/ML 3 ML PEN SC SCH ×2 (08:52→21:45)
[2019-08-08] MEDS ORDERED: CHLORTHALIDONE 25 MG TAB PO SCH (09:00)
[2019-08-08] MEDS ORDERED: ATORVASTATIN 40 MG TAB PO SCH (09:00)
--- NOTE | 2019-08-08 11:32 | Orthopedic Consultation ---
Date of Consultation August 08, 2019 Assessment & Plan (1) Osteomyelitis of thoracic spine: At this time I did order an MRI of the thoracic spine. Make further recommendations upon review. I will go ahead and order a TLSO brace that he can begin wearing when out of bed hopefully this will provide some additional support and pain relief. Ideally this will be treated nonoperatively. Present on Admission?: Yes History of Present Illness Reason for Consultation: Back pain Attending Physician: Vicente Teixeira, DO History of Present Illness This is a 74-year-old male presents with worsening back pain and generalized malaise. Today he states he does have discomfort when getting out of bed. He is comfortable while in bed at this time. Allergies Allergy/AdvReac Type Severity Reaction Status Date / Time No Known Allergies Allergy Verified 08/07/19 21:34 Home Medications Home Medications Medication Instructions Recorded Confirmed Type aspirin 325 mg PO DAILY 08/07/19 08/07/19 History atenolol 25 mg PO DAILY 08/07/19 08/07/19 History atorvastatin 40 mg PO DAILY 08/07/19 08/07/19 History chlorthalidone 12.5 mg PO DAILY 08/07/19 08/07/19 History glipizide 10 mg PO DAILY 08/07/19 08/07/19 History insulin glargine [Lantus Solostar 35 unit SUBCUT HS 08/07/19 08/07/19 History U-100 Insulin] lidocaine 2 patch TOPICAL DAILY 08/07/19 08/07/19 History lisinopril 20 mg PO DAILY 08/07/19 08/07/19 History metformin 1,000 mg PO BID 08/07/19 08/07/19 History nut.tx.gluc.intol,lac-free,soy 1 ea PO DAILY 08/07/19 08/07/19 History [Glucerna] omega 9-zqu-lnd-fish oil [Fish Oil] 1 cap PO BID 08/07/19 08/07/19 History ranitidine HCl 150 mg PO BID 08/07/19 08/07/19 History tizanidine 4 mg PO Q12 PRN 08/07/19 08/07/19 History tramadol 100 mg PO Q6H PRN 08/07/19 08/07/19 History triamcinolone acetonide 1 applic TOPICAL DAILY 08/07/19 08/07/19 History Patient History Medical History (Updated 08/08/19 @ 00:19 by Ji Garcia MD) 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 He is able to move about the bed without marked difficulty. Results & Data ([facility]) Vital Signs (Past 12 Hours) Vital Signs Temp Pulse Resp BP BP Pulse Ox 08/08/19 11:15 36.4 C L 53 L 18 96/51 L 93 08/08/19 09:07 61 105/58 L 08/08/19 07:29 37.1 C 71 16 84/49 L 93/53 L 91 08/08/19 02:33 36.4 C L 87 18 92/61 L 95 08/08/19 01:35 110 H 22 145/88 H 97 08/08/19 00:42 58 L 16 125/50 L 95
[2019-08-08] MEDS ORDERED: GADOBUTROL 30ML VIAL IV PRN (12:59)
--- NOTE | 2019-08-08 13:26 | Magnetic Resonance Report ---
THORACIC SPINE MRI WITH AND WITHOUT CONTRAST HISTORY: Back pain. Abnormal CT. Discitis. TECHNIQUE: Multiplanar multisequence MRI of the thoracic spine was performed both before and after th e intravenous administration of contrast. COMPARISON: Abdomen and pelvis CT 08/07/2019. FINDINGS: Abnormal signal, enhancement, and endplate erosion at T10-11 consistent with a discitis/osteomyelitis . There is also increased T2 signal within the T10-11 disc space and mild enhancement. There is exten sive paravertebral and paraspinal soft tissue thickening and enhancement consistent with phlegmon. No definite abscess identified. There is also thickening and enhancement within the epidural space at t he T10-11 level without a definite epidural fluid collection to suggest an abscess. This results in m ild central canal narrowing at this level. The thoracic spinal cord demonstrates a normal signal inte nsity. No additional areas of discitis/osteomyelitis. No fracture or subluxation within the thoracic spine. IMPRESSION: Above findings consistent with T10-11 discitis/osteomyelitis. There is paravertebral, paraspinal, and epidural soft tissue thickening with enhancement consistent with phlegmon. No abscess identified at this time. This results in mild central canal narrowing at this level. ACT 112: Negative or not required by law. Electronically signed by: Evaristo Musa M.D. 08/08/2019 1:25 PM
[2019-08-08] MEDS: CEFEPIME 2,000 MG in SYRINGE 0 ML IV SCH ×2 (13:35→23:34)
--- NOTE | 2019-08-08 13:53 | Electrocardiogram Report ---
Test Reason : Blood Pressure : / mmHG Vent. Rate : 068 BPM Atrial Rate : 068 BPM P-R Int : 328 ms QRS Dur : 140 ms QT Int : 420 ms P-R-T Axes : 078 079 113 degrees QTc Int : 446 ms Sinus rhythm with 1st degree A-V block Left bundle branch block Abnormal ECG No previous ECGs available Confirmed by Arturo Arreola ([id number]) on 08/08/2019 1:53:15 PM Referred By: REFERRED SELF Confirmed By:Arturo Arreola
--- NOTE | 2019-08-08 17:01 | Communication Note ---
Date of Service: August 08, 2019 seen in f/u from early AM admission. ortho input appreciated, MRI reviewed - updated pt to the best of my ability in regards to MRI but noted that in his situation I would need to defer more to ortho. pain improved some. otherwise feeling about the same. appreciative of care. for now continue current. as per H&P otherwise. f/u labs in AM
--- NOTE | 2019-08-09 00:15 | Billing Data ---
Date of Service August 09, 2019 Coding Level of Care Code 41250 Initial Inpt Care Lvl 3
[2019-08-09] MEDS ORDERED: HALOPERIDOL LACTATE 5 MG/ML 1 ML VIAL IM STA (01:24)
[2019-08-09] MEDS: SODIUM CHLORIDE 0.9% 1000ML 1,000 ML IV SCH ×3 (01:44→17:29)
[2019-08-09] MEDS: HYDROmorphone INJ 0.5 MG/0.5 ML SYR IV PRN (03:23)
[2019-08-09] MEDS: HEPARIN SOD 5,000 UNIT/0.5 ML VIAL SQ SCH ×3 (05:41→21:58)
[2019-08-09 06:16] LABS: Basophils # (auto) 0.02 K/uL (0-0.2); Basophils % (auto) 0.1 %; Eosinophils # (auto) 0.04 K/uL (0-0.5); Eosinophils % (auto) 0.3 %; Hematocrit (blood only) 27.9 % (42-52); Hemoglobin 9.3 g/dL (14.0-18.0); Immature Granulocytes # (auto) 0.03 K/uL (0.00-0.02); Immature Granulocytes % (auto) 0.2 %; Lymphocytes # (auto) 0.99 K/uL (1.2-3.4); Lymphocytes % (auto) 7.2 %; Mean Corpuscular Hemoglobin 27.5 pg (25-34); Mean Corpuscular Hgb Conc 33.3 g/dL (32-36); Mean Corpuscular Volume 82.5 fL (80-100); Mean Platelet Volume 9.9 fL (7.4-10.4); Monocytes # (auto) 0.75 K/uL (0.11-0.59); Monocytes % (auto) 5.5 %; Neutrophils # (auto) 11.87 K/uL (1.4-6.5); Neutrophils % (auto) 86.7 %; Platelet Count 354 K/uL (130-400); RDW Coefficient of Variation 14.1 % (11.5-14.5); RDW Standard Deviation 42.6 fL (36.4-46.3); Red Blood Count 3.38 M/uL (4.7-6.1)
[2019-08-09 06:38] LABS: BUN Creatinine Ratio 32.1 (10-20); Calcium 8.8 mg/dl (8.5-10.1); Creatinine Clr Calc Pharmacy 56.7 ml/min; Est GFR (Non-African American) 62.1; Potassium 4.2 mmol/L (3.5-5.1)
[2019-08-09] MEDS: INSULIN ASPART 100 UNITS/ML 3 ML PEN SC SCH ×4 (08:40→22:03)
[2019-08-09] MEDS: INSULIN GLARGINE SOLOSTAR 100 UNITS/ML 3 ML PEN SC SCH ×2 (08:40→22:00)
[2019-08-09] MEDS: DAPTOmycin 425 MG in SYRINGE 0 ML IV SCH (08:40)
[2019-08-09] MEDS: TIZANIDINE HCL 4 MG TABLET PO PRN (08:41)
[2019-08-09] MEDS: ATENOLOL 25 MG TABLET PO SCH (08:41)
[2019-08-09] MEDS: ACETAMINOPHEN 325 MG TAB PO SCH ×3 (08:45→21:54)
--- NOTE | 2019-08-09 10:37 | Orthopedic Progress Note ---
Date of Service August 09, 2019 Assessment & Plan (1) Osteomyelitis of thoracic spine: MRI obtained does demonstrate evidence of a T10-T11 osteomyelitis. There is no evidence of cord compression or epidural abscess. I would continue recommendations of TLSO and of course IV antibiotics. This ideally would be treated nonoperatively. Present on Admission?: Yes Admission and Anticipated Discharge Date Admission Date: August 08, 2019 Results & Data ([facility]) Vital Signs (Past 12 Hours) Vital Signs Temp Pulse Resp BP BP Pulse Ox 08/09/19 08:20 97 H 18 158/65 H 98 08/08/19 23:21 37.2 C 65 19 130/64 98
[2019-08-09 12:31] LABS: Base Excess VBG 0.7 mEq/L; Oxygen Saturation VBG 84.5 %; pH VBG 7.43 (7.36-7.41)
--- NOTE | 2019-08-09 13:41 | XCELERA ---
[id number]
--- NOTE | 2019-08-09 17:48 | Hospitalist Progress Note ---
Date of Service August 09, 2019 Assessment & Plan (1) Osteomyelitis of thoracic spine: with gram positive bacteremia -fortunately right now does not appear to need surgery -continue dapto pending full sensitivities on blood cultures; since blood cultures showing staph and gram positives most likely culprits for this kind of infection - can stop cefepime (2) Leukocytosis: relates to above improving (3) Fever: as above (4) Staphylococcus aureus bacteremia: almost certainly the source for the osteomyelitis/discitis - ?source for this - ?spontaneous. will review chart to see if any other reason for nidus. check echo - given community acquired bacteremia, low threshold for ЕКАТЕРИНА. repeat blood cultures tomorrow. continue dapto pending full ID&S. 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 may need infectious disease input - dapto covering all concerns at this time, though, so wait on ID&S, wait on echo, follow further. (5) Encephalopathy: likely multifactorial between infection, hospital stay, medications --> will try to minimize sedating meds (6) Apnea: ?med related (meds reduced) vs baseline NATHAN compounded by delirium/encephalopathy vs all of above -ABG attempted given duration of apneas at times- lab/resp unable to draw; VBG quite reassuring. later in the day improved clinical status -continue to follow - if hasn't had recent sleep study will definitely need one after discharge. (7) Diabetes: sugars acceptable. sulfonylurea on hold. continue insulin management (8) KEO (acute kidney injury): improved. unclear sepsis vs dehydration - but improved w fluids. continue to follow (9) CAD (coronary artery disease): clinically appears stable, no appearance of cardiac distress/chest pain/etc (10) Hypertension: BP reasonable given circumstances - continue to follow and continue current regimen (11) DVT prophylaxis: heparin SQ (12) Discharge planning issues: PT/OT eval and treat right now appears he would need facility care IV vs PO abx will play a role as well ---currently acutely ill with many variables -- continue to follow and will coordinate with Admission and Anticipated Discharge Date Admission Date: August 08, 2019 Subjective seen multiple times today. tried to call to update - went to voicemail. no meaningful HPI or ROS -- was deeply asleep when i first saw him - arousable to physical stim - mumbles then sleeps again. later similar but more easily arousable and arousable for longer periods of time. nursing noted that he was similar for part of the day yesterday as well. Review of Systems Review of Systems: Unobtainable due to cognitive status Physical Exam Physical Exam: gen - asleep and at times showing periods of apnea, no pain distress no respiratory distress. heent nc at mmm breathing unlabored, when asleep earlier in the day would have snoring followed by several second apneas. pulse ox during this time would fluctuate from 100% down to about 88% and then back up again in remy with the apneas (apnea --> drop --> breathing --> recover) no aaccessory muscles no appearance of respiratory distress. skin no rashes no pallor or icterus. neuro no focal deficits - hard to discern totally but as best can be assessed cn 2-12 intact and motor tone intact and equal b/l. can't really dog show judge sensory other than that there was no particular area that caused diminished responsiveness. Results & Data Results & Data ([facility]) Vital Signs (Past 12 Hours) Vital Signs Temp Pulse Resp BP Pulse Ox 08/09/19 15:05 98.4 F 72 18 152/66 H 99 08/09/19 08:20 97 H 18 158/65 H 98 PG Care Time/CCT Total # of Minutes Spent Total Time Spent with Patient: Total time spent is greater than 50% in coordination of care (as documented) at patient's floor/unit and/or counseling patient: Coding Level of Care Code 42092 Subseq Hosp Care Lvl 3 Diagnoses Osteomyelitis of thoracic spine M46.24 Leukocytosis D72.829 Fever R50.9 Staphylococcus aureus bacteremia R78.81; B95.61 Encephalopathy G93.40 Apnea R06.81 Diabetes E11.9 KEO (acute kidney injury) N17.9 CAD (coronary artery disease) I25.10 Hypertension I10 DVT prophylaxis Z29.9 Discharge planning issues Z02.9
[2019-08-10] MEDS: TIZANIDINE HCL 4 MG TABLET PO PRN ×2 (01:38→23:28)
[2019-08-10] MEDS: SODIUM CHLORIDE 0.9% 1000ML 1,000 ML IV SCH ×2 (04:59→17:33)
[2019-08-10] MEDS: HEPARIN SOD 5,000 UNIT/0.5 ML VIAL SQ SCH ×3 (05:00→21:30)
[2019-08-10 08:24] LABS: Basophils # (auto) 0.02 K/uL (0-0.2); Basophils % (auto) 0.2 %; Eosinophils # (auto) 0.09 K/uL (0-0.5); Eosinophils % (auto) 0.8 %; Hematocrit (blood only) 28.6 % (42-52); Hemoglobin 9.5 g/dL (14.0-18.0); Immature Granulocytes # (auto) 0.02 K/uL (0.00-0.02); Immature Granulocytes % (auto) 0.2 %; Lymphocytes # (auto) 1.71 K/uL (1.2-3.4); Lymphocytes % (auto) 15.4 %; Mean Corpuscular Hemoglobin 27.5 pg (25-34); Mean Corpuscular Hgb Conc 33.2 g/dL (32-36); Mean Corpuscular Volume 82.7 fL (80-100); Mean Platelet Volume 9.8 fL (7.4-10.4); Monocytes # (auto) 0.77 K/uL (0.11-0.59); Monocytes % (auto) 6.9 %; Neutrophils # (auto) 8.53 K/uL (1.4-6.5); Neutrophils % (auto) 76.5 %; Platelet Count 400 K/uL (130-400); RDW Coefficient of Variation 13.8 % (11.5-14.5); Red Blood Count 3.46 M/uL (4.7-6.1); White Blood Count 11.14 K/uL (4.8-10.8)
[2019-08-10] MEDS: DAPTOmycin 425 MG in SYRINGE 0 ML IV SCH (08:34)
[2019-08-10] MEDS: ACETAMINOPHEN 325 MG TAB PO SCH ×3 (08:34→21:31)
[2019-08-10] MEDS: ATENOLOL 25 MG TABLET PO SCH (08:36)
[2019-08-10] MEDS: INSULIN GLARGINE SOLOSTAR 100 UNITS/ML 3 ML PEN SC SCH ×2 (08:38→21:29)
[2019-08-10] MEDS: INSULIN ASPART 100 UNITS/ML 3 ML PEN SC SCH ×4 (08:38→21:30)
[2019-08-10 08:51] LABS: BUN Creatinine Ratio 24.5 (10-20); Calcium 8.8 mg/dl (8.5-10.1); Creatinine Clr Calc Pharmacy 80.2 ml/min; Est GFR (African American) 101.7; Est GFR (Non-African American) 87.7; Potassium 3.7 mmol/L (3.5-5.1)
[2019-08-10] MEDS: LIDOCAINE 5% 1 PATCH TD SCH (13:37)
--- NOTE | 2019-08-10 18:48 | Hospitalist Progress Note ---
Date of Service August 10, 2019 Assessment & Plan (1) Osteomyelitis of thoracic spine: MSSA bacteremia -fortunately right now does not appear to need surgery -will need IV for probably 6-8wks, but since MSSA change to cefazolin 2g IV q8 (2) Leukocytosis: relates to above continues to improve (3) Fever: as above (4) Staphylococcus aureus bacteremia: almost certainly the source for the osteomyelitis/discitis - ?source for this - ?spontaneous. TTE no significant valvulopathy and will need long treatment duration for discitis/osteomyelitis so no clear utility in checking ЕКАТЕРИНА PICC once f/u blood cultures are negative (5) Encephalopathy: likely multifactorial between infection, hospital stay, medications --> much better today (6) Apnea: ?med related (meds reduced) vs baseline NATHAN compounded by delirium/encephalopathy vs all of above -continue to follow - if hasn't had recent sleep study will definitely need one after discharge. (7) Diabetes: sugars overall reasonable continue insulin management and follow (8) KEO (acute kidney injury): improved. unclear sepsis vs dehydration - but improved w fluids. continue to follow periodically (9) CAD (coronary artery disease): clinically appears stable, no appearance of cardiac distress/chest pain/etc (10) Hypertension: BP acceptable for current situation - continue to follow and continue current regimen (11) DVT prophylaxis: heparin SQ (12) Discharge planning issues: PT/OT eval and treat showing good progress IV vs PO abx will play a role as well ---currently acutely ill with many variables -- continue to follow and will coordinate with - right now they would both prefer home / home health, although [facility] is an acceptable alternative if he needs rehab. Admission and Anticipated Discharge Date Admission Date: August 08, 2019 Subjective much more awake than yesterday - main complaint is pain in his middle back when he moves. otherwise feeling better. he ntoes that he walked fairly well earlier - seemed pleased with how well he did updated pt on situation and plans called - updated as well and answered all quetsions to the best of my ability Review of Systems Review of Systems: All systems reviewed & are unremarkable except as noted in HPI & below Physical Exam Physical Exam: gen aao hard of hearing but much more awake and interactive than yesterfday no distress heent nc at mmm msk tender to palp mid thoracic paraspinals neuro no focal deficits Results & Data Results & [facility] ([facility]) Vital Signs (Past 12 Hours) Vital Signs Temp Pulse Resp BP BP Pulse Ox 08/10/19 15:16 98.4 F 64 16 159/59 H 97 08/10/19 07:03 97.9 F 64 19 161/71 H 96 PG Care Time/CCT Total # of Minutes Spent Total Time Spent with Patient: Total time spent is greater than 50% in coordination of care (as documented) at patient's floor/unit and/or counseling patient: Coding Level of Care Code 57947 Subseq Hosp Care Lvl 3 Diagnoses Osteomyelitis of thoracic spine M46.24 Leukocytosis D72.829 Fever R50.9 Staphylococcus aureus bacteremia R78.81; B95.61 Encephalopathy G93.40 Apnea R06.81 Diabetes E11.9 KEO (acute kidney injury) N17.9 CAD (coronary artery disease) I25.10 Hypertension I10 DVT prophylaxis Z29.9 Discharge planning issues Z02.9
[2019-08-10] MEDS: CEFAZOLIN 2000MG 2,000 MG/15 ML SYR IV SCH (19:27)
[2019-08-11] MEDS: CEFAZOLIN 2000MG 2,000 MG/15 ML SYR IV SCH ×3 (04:06→19:50)
[2019-08-11] MEDS: HEPARIN SOD 5,000 UNIT/0.5 ML VIAL SQ SCH ×3 (05:59→20:55)
[2019-08-11] MEDS ORDERED: KETOROLAC TROMETHAMINE 15 MG/ML VIAL IV ONE (06:15)
[2019-08-11] MEDS: LIDOCAINE 5% 1 PATCH TD SCH (08:04)
[2019-08-11] MEDS: ACETAMINOPHEN 325 MG TAB PO SCH ×3 (08:04→20:51)
[2019-08-11] MEDS: ATENOLOL 25 MG TABLET PO SCH (08:04)
[2019-08-11] MEDS: INSULIN ASPART 100 UNITS/ML 3 ML PEN SC SCH ×4 (08:04→20:49)
[2019-08-11] MEDS: INSULIN GLARGINE SOLOSTAR 100 UNITS/ML 3 ML PEN SC SCH ×2 (08:05→20:48)
[2019-08-11 08:50] LABS: Creatinine Clr Calc Pharmacy 76.5 ml/min; Est GFR (African American) 99.7
--- NOTE | 2019-08-11 15:09 | Hospitalist Progress Note ---
Date of Service August 11, 2019 Assessment & Plan (1) Osteomyelitis of thoracic spine: MSSA bacteremia -fortunately right now does not appear to need surgery -will need IV for probably 6-8wks, continue cefazolin for now, follow CBC/CRP periodically (2) Leukocytosis: relates to above continue to follow periodically - campos since tomorrow's check will be first meaningful WBC since change to cefazolin (3) Fever: as above (4) Staphylococcus aureus bacteremia: almost certainly the source for the osteomyelitis/discitis - ?source for this - ?spontaneous. TTE no significant valvulopathy and will need long treatment duration for discitis/osteomyelitis so no clear utility in checking ЕКАТЕРИНА PICC once f/u blood cultures are negative (hopefully tomorrow) (5) Encephalopathy: likely multifactorial between infection, hospital stay, medications --> continue to follow, reorient, light in room, etc (6) Apnea: ?med related (meds reduced) vs baseline NATHAN compounded by delirium/encephalopathy vs all of above -continue to follow - if hasn't had recent sleep study will definitely need one after discharge. (7) Diabetes: sugars overall good, continue insulin management and follow (8) KEO (acute kidney injury): improved. unclear sepsis vs dehydration - but improved w fluids. continue to follow periodically but now appears to be a resolved issue (9) CAD (coronary artery disease): clinically appears stable, no appearance of cardiac distress/chest pain/etc (10) Hypertension: BP acceptable for current situation - continue to follow and continue current regimen (11) DVT prophylaxis: heparin SQ (12) Discharge planning issues: PT/OT eval and treat showing good progress IV vs PO abx will play a role as well ---right now anticipating [facility] - depending on tomorrow's blood cultures - hopefully PICC tomorrow and then rehab tuesday Admission and Anticipated Discharge Date Admission Date: August 08, 2019 Subjective feeling better pain still present but better controlled than before - still hurts with movement no other complaints no new issues no f/c/s Review of Systems Review of Systems: All systems reviewed & are unremarkable except as noted in HPI & below Physical Exam Physical Exam: gen aao pleasant nad heent nc at mmm breathing unlabored no accessory muscles good effort skin no rashes no pallor or icterus no focal neuro deficits Results & Data Results & [facility] ([facility]) Vital Signs (Past 12 Hours) Vital Signs Temp Pulse Resp BP Pulse Ox 08/11/19 07:19 98.1 F 61 20 162/69 H 97 PG Care Time/CCT Total # of Minutes Spent Total Time Spent with Patient: Total time spent is greater than 50% in coordination of care (as documented) at patient's floor/unit and/or counseling patient: Coding Level of Care Code 45856 Subseq Hosp Care Lvl 3 Diagnoses Osteomyelitis of thoracic spine M46.24 Leukocytosis D72.829 Fever R50.9 Staphylococcus aureus bacteremia R78.81; B95.61 Encephalopathy G93.40 Apnea R06.81 Diabetes E11.9 KEO (acute kidney injury) N17.9 CAD (coronary artery disease) I25.10 Hypertension I10 DVT prophylaxis Z29.9 Discharge planning issues Z02.9
[2019-08-12] MEDS: MoRPHine SULFATE 2 MG/ML CARP IV PRN ×5 (01:10→20:26)
[2019-08-12] MEDS: CEFAZOLIN 2000MG 2,000 MG/15 ML SYR IV SCH ×3 (04:15→21:38)
[2019-08-12] MEDS: HEPARIN SOD 5,000 UNIT/0.5 ML VIAL SQ SCH ×3 (05:43→21:40)
[2019-08-12] MEDS: TIZANIDINE HCL 4 MG TABLET PO PRN (07:53)
[2019-08-12] MEDS: ACETAMINOPHEN 325 MG TAB PO SCH ×3 (07:54→21:41)
[2019-08-12] MEDS: ATENOLOL 25 MG TABLET PO SCH (07:55)
[2019-08-12] MEDS: INSULIN GLARGINE SOLOSTAR 100 UNITS/ML 3 ML PEN SC SCH ×2 (07:56→21:38)
[2019-08-12] MEDS: LIDOCAINE 5% 1 PATCH TD SCH (07:56)
[2019-08-12] MEDS: INSULIN ASPART 100 UNITS/ML 3 ML PEN SC SCH ×4 (07:57→21:42)
[2019-08-12 08:20] LABS: Basophils # (auto) 0.05 K/uL (0-0.2); Basophils % (auto) 0.4 %; Eosinophils # (auto) 0.18 K/uL (0-0.5); Eosinophils % (auto) 1.4 %; Hematocrit (blood only) 34.7 % (42-52); Hemoglobin 11.6 g/dL (14.0-18.0); Immature Granulocytes # (auto) 0.04 K/uL (0.00-0.02); Immature Granulocytes % (auto) 0.3 %; Lymphocytes # (auto) 2.26 K/uL (1.2-3.4); Mean Corpuscular Hemoglobin 27.4 pg (25-34); Mean Corpuscular Hgb Conc 33.4 g/dL (32-36); Mean Corpuscular Volume 81.8 fL (80-100); Mean Platelet Volume 9.5 fL (7.4-10.4); Monocytes # (auto) 0.91 K/uL (0.11-0.59); Monocytes % (auto) 7.3 %; Neutrophils # (auto) 9.11 K/uL (1.4-6.5); Neutrophils % (auto) 72.6 %; Platelet Count 450 K/uL (130-400); RDW Coefficient of Variation 13.8 % (11.5-14.5); RDW Standard Deviation 41.2 fL (36.4-46.3); Red Blood Count 4.24 M/uL (4.7-6.1); White Blood Count 12.55 K/uL (4.8-10.8)
[2019-08-12 09:24] LABS: C Reactive Protein 3.98 mg/dl (0-0.29); Creatinine Clr Calc Pharmacy 68.5 ml/min; Est GFR (African American) 90.5; Est GFR (Non-African American) 78.1
--- NOTE | 2019-08-12 17:19 | Hospitalist Progress Note ---
Date of Service August 12, 2019 Assessment & Plan (1) Osteomyelitis of thoracic spine: MSSA bacteremia -fortunately right now does not appear to need surgery -will need IV for probably 6-8wks, continue cefazolin for now, follow CBC/CRP periodically -pain control up and down, but overall reasonable (especially given how massively sedated he was on 08/08 - to where i was worried about airway/breathing for a short time)(because of this, definitely favoring lower dosing of sedating meds/nonsedating meds when possible) (2) Leukocytosis: relates to above continue to follow periodically - went up very slightly but with clinical improvement, sensitivity on culture, and marked drop in CRP - overall reassuring (3) Fever: relates to above (4) Staphylococcus aureus bacteremia: almost certainly the source for the osteomyelitis/discitis - ?source for this - ?spontaneous. TTE no significant valvulopathy and will need long treatment duration for discitis/osteomyelitis so no clear utility in checking ЕКАТЕРИНА f/u blood cultures negative to date - PICC ordered (5) Encephalopathy: likely multifactorial between infection, hospital stay, medications --> continue to follow, reorient, light in room, etc had a very bad day 08/08, now has been quite good last several days (6) Apnea: ?med related (meds reduced) vs baseline NATHAN compounded by delirium/encephalopathy vs all of above -continue to follow - definitely improved with minimization of sedating meds - if hasn't had recent sleep study will definitely need one after discharge. (7) Diabetes: sugars sl high - tightened insulin coverage, continue to follow (8) KEO (acute kidney injury): improved. unclear sepsis vs dehydration - but improved w fluids. continue to follow periodically but appears to be a resolved issue (9) CAD (coronary artery disease): clinically appears stable, no appearance of cardiac distress/chest pain/etc (10) Hypertension: BP stays reasonable for current situation - continue to follow and continue current regimen (11) DVT prophylaxis: heparin SQ (12) Discharge planning issues: PT/OT eval and treat showing good progress ---ideally PICC today or early tomorrow, then [facility] hopefully 08/12, ongoing IV cefazolin w periodic CBC, CRP over next 6wks (anticipate f/u visits with ortho/spine as well), then determination of 6wks vs 8wks based on his overall progress Admission and Anticipated Discharge Date Admission Date: August 08, 2019 Subjective pain was bad through the night but now better - still not good but better than it was, still hurts to move. overall tolerable though. discussed PICC line - he expresses understading and gives consent discussed current working plan - rehab w IV abx, probably abx 6-8wks depending on his progress Review of Systems Review of Systems: All systems reviewed & are unremarkable except as noted in HPI & below Physical Exam Physical Exam: gen aao pleasant nad heent nc at mmm breathing unlabored no accessory muscles good effort skin no rashes no pallor or icterus no focal neuro deficits. Results & Data Results & Data ([facility]) Vital Signs (Past 12 Hours) Vital Signs Temp Pulse Resp BP Pulse Ox 08/12/19 15:15 98.2 F 64 18 134/61 97 08/12/19 07:27 98.4 F 66 18 136/73 98 PG Care Time/CCT Total # of Minutes Spent Total Time Spent with Patient: Total time spent is greater than 50% in coordination of care (as documented) at patient's floor/unit and/or counseling patient: Coding Level of Care Code 05110 Subseq Hosp Care Lvl 3 Diagnoses Osteomyelitis of thoracic spine M46.24 Leukocytosis D72.829 Fever R50.9 Staphylococcus aureus bacteremia R78.81; B95.61 Encephalopathy G93.40 Apnea R06.81 Diabetes E11.9 KEO (acute kidney injury) N17.9 CAD (coronary artery disease) I25.10 Hypertension I10 DVT prophylaxis Z29.9 Discharge planning issues Z02.9
--- NOTE | 2019-08-12 20:21 | XRay Report ---
XR chest 1V portable HISTORY: confirm PICC placement COMPARISON: Chest 08/08/2019. FINDINGS: The right PICC extends into the right internal jugular vein. The tip is not included on thi s study. This should be removed and reinserted. There are poststernotomy changes. No pneumothorax. No pleural effusions. The heart is stable in size. No evidence for pulmonary edema. IMPRESSION: The right PICC extends into the right internal jugular vein. The tip is not included on this study. T his should be removed/replaced. ACT 112: Negative or not required by law. Electronically signed by: Evaristo Musa M.D. 08/12/2019 8:20 PM
[2019-08-13] MEDS: CEFAZOLIN 2000MG 2,000 MG/15 ML SYR IV SCH ×4 (03:08→19:46)
[2019-08-13] MEDS: MoRPHine SULFATE 2 MG/ML CARP IV PRN ×3 (04:33→13:49)
[2019-08-13] MEDS: HEPARIN SOD 5,000 UNIT/0.5 ML VIAL SQ SCH ×3 (05:22→21:07)
--- NOTE | 2019-08-13 09:39 | XRay Report ---
XR chest 1V portable CLINICAL HISTORY: 74 years-old Male presenting with confirm picc placement left upper arm. TECHNIQUE: Portable upright AP view of the chest was obtained. COMPARISON: 08/12/2019. FINDINGS: Left upper extremity PICC courses into the left internal jugular vein, terminus beyond the field-of-v iew. Prior malposition right upper extremity PICC has been removed. Median sternotomy wires. Cardiac silhouette top normal in size. Minimal left basilar opacity. No new focal opacity. No large effusion though trace pleural effusions may be present. No pneumothorax. Skin fold suggested over the periphery of the left lung base. Mild degenerative changes of the spine. Upp er abdomen normal. IMPRESSION: 1. Malpositioned left upper extremity PICC. Retraction and repositioning is necessary. 2. Minimal left basilar scarring or atelectasis. The report will be called/faxed according to standard departmental protocol. ACT 112: Negative or not required by law. Electronically signed by: Ji Smith M.D. 08/13/2019 9:38 AM
[2019-08-13] MEDS: LIDOCAINE 5% 1 PATCH TD SCH (09:52)
[2019-08-13] MEDS: ATENOLOL 25 MG TABLET PO SCH (09:52)
[2019-08-13] MEDS: ACETAMINOPHEN 325 MG TAB PO SCH ×3 (09:52→21:07)
[2019-08-13] MEDS: INSULIN GLARGINE SOLOSTAR 100 UNITS/ML 3 ML PEN SC SCH ×2 (09:53→21:06)
[2019-08-13] MEDS: INSULIN ASPART 100 UNITS/ML 3 ML PEN SC SCH ×4 (09:53→21:08)
--- NOTE | 2019-08-13 11:32 | XRay Report ---
XR chest 1V portable CLINICAL HISTORY: 74 years-old Male presenting with adjustment of malpositioned PICC. Confirm PICC . TECHNIQUE: Portable upright AP view of the chest was obtained. COMPARISON: 08/13/2019 9:26 AM. FINDINGS: The left upper extremity PICC remains malpositioned coursing into the left internal jugular vein term inating beyond the [id number]. Median sternotomy wires unchanged. Atherosclerosis of the aortic arch. Cardiac silhouette mildly enla rged. Mildly low lung volumes. Minimal left basilar opacities. No pleural effusion or pneumothorax. D egenerative changes of the thoracic spine. Upper abdomen normal. IMPRESSION: 1. Unchanged position of the left a partially radiopaque now positioned within the left internal jug ular vein. Repositioning is necessary. The report will be called/faxed according to standard departmental protocol. ACT 112: Negative or not required by law. Electronically signed by: Ji Smith M.D. 08/13/2019 11:31 AM
--- NOTE | 2019-08-13 23:00 | Hospitalist Progress Note ---
Date of Service August 13, 2019 Assessment & Plan (1) Osteomyelitis of thoracic spine: MSSA bacteremia -fortunately right now does not appear to need surgery -will need IV for probably 6-8wks, continue cefazolin for now, -pain control up and down, but overall reasonable -Patient is more awake today. (2) Leukocytosis: relates to above continue to follow periodically - went up very slightly but with clinical improvement, sensitivity on culture, and marked drop in CRP - overall reassuring (3) Fever: relates to above (4) Staphylococcus aureus bacteremia: almost certainly the source for the osteomyelitis/discitis - ?source for this - ?spontaneous. TTE no significant valvulopathy and will need long treatment duration for discitis/osteomyelitis so no clear utility in checking ЕКАТЕРИНА f/u blood cultures negative to date - PICC ordered/ sadly it was pulled out by patient overnight. Will be discharged on ultrasound guided peripheral line on day of discharge. (5) Encephalopathy: likely multifactorial between infection, hospital stay, medications --> continue to follow, reorient, light in room, etc had a very bad day 08/08, now has been quite good last several days /this has improved today 08/12 (6) Apnea: ?med related (meds reduced) vs baseline NATHAN compounded by delirium/enc ephalopathy vs all of above -continue to follow - definitely improved with minimization of sedating meds - if hasn't had recent sleep study will definitely need one after discharge. (7) Diabetes: sugars sl high - tightened insulin coverage, continue to follow (8) KEO (acute kidney injury): improved. unclear sepsis vs dehydration - but improved w fluids. continue to follow periodically but appears to be a resolved issue (9) CAD (coronary artery disease): clinically appears stable, no appearance of cardiac distress/chest pain/etc (10) Hypertension: BP stays reasonable for current situation - continue to follow and contin ue current regimen (11) DVT prophylaxis: heparin SQ (12) Discharge planning issues: PT/OT eval and treat showing good progress ---ideally PICC today or early tomorrow, then [facility] hopefully 08/12, ongoing IV cefazolin w periodic CBC, CRP over next 6wks (anticipate f/u visits with ortho/spine as well), then determination of 6wks vs 8wks based on his overall progress Admission and Anticipated Discharge Date Admission Date: August 08, 2019 Subjective Patient is more awake. He has no new complaints at this time. Patient had multiple questions regarding plan of care. Review of Systems Review of Systems: All systems reviewed & are unremarkable except as noted in HPI & below Physical Exam Physical Exam: General: A&Ox3. NAD. Cooperative. Uncomfortable but nontoxic. HEENT: Atraumatic, normocephalic. Pulm: CTAB A&P.. Cardiac: RRR, Radial pulses intact and symmetrical. Abdominal: Nontender, nondistended, soft. BS present. Light touch, pinprick intact in upper and low extremities without deficit or asymmetry. Psych: AAOX3 Neuro: normal strength Results & Data Results & Data ([facility]) Vital Signs (Past 12 Hours) Vital Signs Temp Pulse Resp BP Pulse Ox 08/13/19 15:38 36.6 C 57 L 18 112/65 99 PG Care Time/CCT Total # of Minutes Spent Total Time Spent with Patient: Total time spent is greater than 50% in coordination of care (as documented) at patient's floor/unit and/or counseling patient: Coding Level of Care Code 72709 Subseq Hosp Care Lvl 3 Diagnoses Osteomyelitis of thoracic spine M46.24 Leukocytosis D72.829 Fever R50.9 Staphylococcus aureus bacteremia R78.81; B95.61 Encephalopathy G93.40 Apnea R06.81 Diabetes E11.9 KEO (acute kidney injury) N17.9 CAD (coronary artery disease) I25.10 Hypertension I10 DVT prophylaxis Z29.9 Discharge planning issues Z02.9 Time Spent (min) 35
[2019-08-14] MEDS: MoRPHine SULFATE 2 MG/ML CARP IV PRN (03:05)
[2019-08-14] MEDS: CEFAZOLIN 2000MG 2,000 MG/15 ML SYR IV SCH (03:16)
[2019-08-14] MEDS: HEPARIN SOD 5,000 UNIT/0.5 ML VIAL SQ SCH (05:17)
[2019-08-14 07:11] VITALS: BP 130/57; PULSE 66; TEMP 97.9; O2SAT 98
[2019-08-14] MEDS: INSULIN GLARGINE SOLOSTAR 100 UNITS/ML 3 ML PEN SC SCH (08:04)
[2019-08-14] MEDS: LIDOCAINE 5% 1 PATCH TD SCH (08:05)
[2019-08-14] MEDS: ATENOLOL 25 MG TABLET PO SCH (08:06)
[2019-08-14] MEDS: ACETAMINOPHEN 325 MG TAB PO SCH (08:06)
[2019-08-14] MEDS: INSULIN ASPART 100 UNITS/ML 3 ML PEN SC SCH (08:08)
--- NOTE | 2019-08-20 23:38 | Discharge Summary ---
Date of Service August 14, 2019 Admission HPI Per Admitting Provider Roberth is a 74-year-old male with a past medical history of coronary artery disease with bypass graft, insulin-dependent diabetes mellitus, and hypertension who presents with back and flank pain which is acutely worsened for 1 week and which was proceeded by a fall. Abdomen and pelvis CT shows T10-T11 vertebral plate damage with surrounding edema suggestive of discitis with osteomyelitis. Hai reports he was in his otherwise normal state of health until about 1 week ago when he had a mechanical fall. He felt like after his fall he had an increase in pain, and slowly developed excruciating 10 out of 10 pain which has mildly improved with heat packs but overall continues to be very painful and limiting his movement. He saw a [facility] physician who performed an x-ray which did not show any acute findings, but was advised to come to the emergency department after his pain continued to worsen. He endorses feeling intermittently feverish and chilly in the last week. He denies chest pain, chest pressure, palpitat ions. He endorses an intermittent cough in the last week without sputum production or shortness of breath. He denies urinary retention, but endorses decreased urinary volume over the last few days. Denies dysuria. Acute/new weakness or numbness and tingling in his legs but notes his movement is limited by pain. He denies abdominal pain, nausea, vomiting, diarrhea, constipation. He has not had any recent travel. He reports he does not remember his medications, but only that his short acting insulin was stopped by his primary care provider recently. Medical history: Hypertension, insulin-dependent diabetes, coronary artery disease with CABG Allergies: No known drug allergies Surgical history: CABG as above Medications: Patient is a poor historian of medications. Per med rec is on low- dose aspirin, atenolol, chlorthalidone, glipizide, insulin glargine, lisinopril, metformin, ranitidine, tizanidine, tramadol Social: Reports he lives at home with his Lolly, able to ambulate prior to admission independently. Denies alcohol, tobacco, and recreational drug use. CODE STATUS: Full code. Patient reports he would want his Lolly to be his decision maker in emergency. Principal Diagnosis osteomyelitis of thoracic spine Discharge Exam General: A&Ox3. NAD. Cooperative. HEENT: Atraumatic, normocephalic. Pulm: CTAB A&P.. Cardiac: RRR, Radial pulses intact and symmetrical. Abdominal: Nontender, nondistended, soft. BS present. Light touch, pinprick intact in upper and low extremities without deficit or asymmetry. Psych: AAOX3 Neuro: normal strength Discharge Data Allergies Allergy/AdvReac Type Severity Reaction Status Date / Time No Known Allergies Allergy Verified 08/07/19 21:34 Consultations 08/07/19 23:25 ED Decision to Admit Stat 08/08/19 01:55 Consult Orthopedic Surgery Routine Ordered Studies 08/07/19 21:49 CT abd pelvis wo con Stat 08/08/19 07:52 MR thoracic spine wo/w con Routine Hospital Course (1) Osteomyelitis of thoracic spine: MSSA bacteremia -fortunately right now does not appear to need surgery -will need IV for probably 6-8wks, continue cefazolin for now, -Pain appears ti be controlled. Patient is happy with pain regimen. -Patient appears to have returned to his baseline mentally. (2) Leukocytosis: relates to above continue to follow periodically - went up very slightly but with clinical improvement, sensitivity on culture, and marked drop in CRP - overall reassuring (3) Fever: relates to above (4) Staphylococcus aureus bacteremia: almost certainly the source for the osteomyelitis/discitis - ?source for this - ?spontaneous. TTE no significant valvulopathy and will need long treatment duration for discitis/osteomyelitis so no clear utility in checking ЕКАТЕРИНА f/u blood cultures negative to date - PICC ordered/ sadly it was pulled out by patient overnight. Will be discharged on ultrasound guided peripheral line on day of discharge. (5) Encephalopathy: likely multifactorial between infection, hospital stay, medications --> continue to follow, reorient, light in room, etc had a very bad day 08/08, now has been quite good last several days this has improved today 08/13 (6) Apnea: ?med related (meds reduced) vs baseline NATHAN compounded by delirium/encephalopathy vs all of above -continue to follow - definitely improved with minimization of sedating meds - if hasn't had recent sleep study will definitely need one after discharge. (7) Diabetes: sugars sl high - tightened insulin coverage, continue to follow (8) KEO (acute kidney injury): improved. unclear sepsis vs dehydration - but improved w fluids. continue to follow periodically but appears to be a resolved issue (9) CAD (coronary artery disease): clinically appears stable, no appearance of cardiac distress/chest pain/etc (10) Hypertension: BP stays reasonable for current situation - continue to follow and continue current regimen (11) DVT prophylaxis: heparin SQ (12) Discharge planning issues: PT/OT eval and treat showing good progress dc'ed on peripheral ultrasound guided line. Total Time Total Time Spent Total Time Spent (In Minutes): 32 Total Time Includes: Examination of the Patient, Discharge Planning and Medication Reconciliation Discharge Plan Discharge Items Patient Disposition: Transfer [facility] Reason For Visit: OSTEOMYELITIS Discharge Diagnosis: Osteomyelitis Activity: Resume your previous activity Non-emergency contact: Primary Care Provider Call non-emergency contact if: you have any medication questions Follow-up/Referrals: Dorothy Gómez M.D. [Primary Care Provider] - Diet: Carb Consistent or DM2 and Heart Healthy Addtl Attending Provider Instructions: You have been hospitalized for an acute medical problem. During your stay at [facility], we have made an effort to correct the problem that brought you to the hospital while keeping you as comfortable as possible. Medications were used to bring your condition under control and your discharge instructions will include directions for any medications you should take after leaving the hospital. Please make sure you see your Primary Care Provider as part of your follow up plan. Coronavirus disease 2019 (COVID-19) is a virus that causes a respiratory illness. It is caused by a coronavirus called 2019 novel coronavirus (2019- nCoV). There are many types of coronavirus. Coronaviruses are a very common cause of bronchitis. They may sometimes cause lung infection(pneumonia). Symptoms can range from mild to severe respiratory illness. These viruses are also foundin some animals. COVID-19 was first found in people in [facility], in late 2019. In 2020, several cases of COVID-19 have been confirmed in the [place] Public health officials are working to find the source. How the virus spreads is not yet fully known. It may be spread through droplets of fluid that a person coughs or sneezes into the air. It may be spread if you touch a surface with virus on it, such as a handle or object, and then touch your mouth. What are the symptoms of COVID-19? Some people have no symptoms or mild symptoms. Symptoms may appear 2 to 14 days after contact with the virus. Symptoms can include: Fever Coughing Trouble breathing What are possible complications from COVID-19? In many cases, this virus can cause infection (pneumonia) in both lungs. In some cases, this can cause . How is COVID-19 diagnosed? Your healthcare provider will ask about your symptoms. He or she will also ask about your recent travel and contact with sick people. Testing for the virus is only done through the CDC. If yourhealthcare provider thinks you may have COVID- 19, he or she will work with your local health department and the CDC on testing. Follow all instructions from your healthcare provider. COVID-19 is diagnosed by: Nasal and throat swab. A cotton-tipped swab is wiped inside your nose or throat. This is done to check for viruses in your nasal mucus. Sputum culture. A small sample of mucus coughed from your lungs (sputum) is collected if you have a cough. It is checked for the virus. How is COVID-19 treated? There is currently no medicine to treat the virus. Treatment is done to help your body while it fights the virus. This is known as supportive care. Supportive care may include: Pain medicine. These include acetaminophen and ibuprofen. They are used to help ease pain and reduce fever. Bed rest. This helps your body fight the illness. For severe illness, you may need to stay in the hospital. Care during severe illness may include: IV (intravenous) fluids.These are given through a vein to help keep your body hydrated. Oxygen. Supplemental oxygen or ventilation with a breathing machine (ventilato r) may be given. This is done to keep enough oxygen in your body. Are you at risk for COVID-19? If youve been to a place where people have been sick with this virus, you are at risk for infection. You are at risk if you: Recently traveled to an affected area Had contact with a sick person who recently traveled to this area Had contact with a person who was diagnosed with COVID-19 How can COVID-19 be prevented? There is no vaccine yet. The best prevention is to not have contact with the virus. The CDC advises that people should not travel to areas where there are COVID-19 outbreaks right now for any reason that is not urgent. To help prevent spreading the infection, wash your hands often, or use an alcohol-basedhand clip on sunglasses inspector. If you are in an area with COVID-19: Wash your hands often. Or use an alcohol-based hand clip on sunglasses inspector often. Only touch your eyes, nose, or mouth with clean hands. Dont have contact with people who are sick. Follow local instructions about being in public. For example, you may be told to not use public transport for a period of time. Stay away from markets that have live or animals. Wash your hands after touching any animals. Don't touch animals that may be sick. Dont share eating or drinking tools with sick people. Dont kiss someone who is sick. Clean surfaces often with disinfectant. If you were in an area with COVID-19 in the last 14 days: Call your healthcare provider. He or she can talk with local health staff to see what action may be needed. Follow all instructions from your provider. Take your temperature every morning and evening for at least 14 days. This is to check for fever. Keep a record of the readings. Keep watch for symptoms of the virus. Tell your provider right away if you have symptoms. If you were in an area with COVID-19 and have a fever or other symptoms: Dont panic. Keep in mind that other illnesses can cause similar symptoms. Stay away from work, school, and public places. Limit physical contact with family members. Don't kiss anyone or share eating or drinking utensils. Clean surfaces you touch with disinfectant. This is to help prevent the virus from spreading. Call your healthcare provider. Explain that you have been exposed to COVID-19 and have symptoms. Do this before going to any hospital. Wait for instructions. Keep in mind that healthcare staff may wear protective equipment such as masks, gowns, gloves, and eye protection. You may be put in a separate room. This is to prevent the possible virus from spreading. Tell the healthcare staff about recent travel. This includes local travel on public transport. Staff may need to find other people you have been in contact with. Follow all instructions the healthcare staff give you. If you have been diagnosed with COVID-19 Follow all instructions from your healthcare provider. Dont leave your home, except to get medical care. Call your healthcare providers office before going. They can prepare and give you instructions. This will help prevent the virus from spreading. Dont go to work, school, or public areas. Dont use public transport or taxis. Stay away from other people in your home. Have them wear face masks around you. Dont share household items or food. Wear a face mask if you can. This includes at home or in a medical facility. Cover your face with a tissue when you cough or sneeze. Throw the tissue away. Wash your hands. Wash your hands often. Caregivers should: Follow all instructions from healthcare staff. Wear a face mask and protective clothing as advised. Wash hands often. Keep track of the sick persons symptoms. Clean surfaces, fabrics, and laundry thoroughly. Keep other people away from the sick person. When to call your healthcare provider Call your healthcare provider: If youve recently traveled and have symptoms If you have been diagnosed with COVID-19 and your symptoms are worse To learn more To find out more about COVID-19, visit the CDC website at www.cdc.gov/coronavirus/2019-ncov/index.html. [employer]. [address] [place] [address]. All rights reserved. This information is not intended as a substitute for professional medical care. Always follow your healthcare professional's instructions. This information has been adapted from [employer] Pending Studies at Discharge: No Stand-Alone Forms: My Delfmems, Smoking Cessation Skilled Items Patient informed of condition?: No DNR: No Discharge Level of Care: Skilled Communicable Disease: No Discharge Prognosis: Stable Lines: Peripheral IV Urinary Catheter: No Medications and DC Order Prescriptions: New acetaminophen [Mapap (acetaminophen)] 325 mg Tablet 650 mg PO TID 30 Days Qty: 180 RF: 0 aspirin 81 mg tablet,chewable 81 mg PO DAILY Qty: 30 RF: 0 cefazolin in 0.9% sod chloride 2 gram/100 mL solution 2 gm IV Q8H 42 Days Qty: 81727 RF: 0 morphine 2 mg/mL Syringe 2 mg IV Q4H PRN (Reason: severe pain) Qty: 20 RF: 0 Continued atenolol 25 mg tablet 25 mg PO DAILY RF: 0 triamcinolone acetonide 0.1 % Ointment 1 applic TOPICAL DAILY RF: 0 omega 1-djy-gol-fish oil [Fish Oil] 1,000 mg (120 mg-180 mg) Capsule 1 cap PO BID RF: 0 atorvastatin 80 mg Tablet 40 mg PO DAILY RF: 0 tizanidine 4 mg Tablet 4 mg PO Q12 PRN (Reason: Muscle Spasm) RF: 0 lisinopril 20 mg Tablet 20 mg PO DAILY RF: 0 glipizide 10 mg Tablet 10 mg PO DAILY RF: 0 chlorthalidone 25 mg Tablet 12.5 mg PO DAILY RF: 0 metformin 1,000 mg tablet 1,000 mg PO BID RF: 0 ranitidine HCl 150 mg Tablet 150 mg PO BID RF: 0 lidocaine 5 % Adhesive Patch,Medicated 2 patch TOPICAL DAILY RF: 0 Glucerna Liquid 1 ea PO DAILY RF: 0 Lantus Solostar U-100 Insulin 100 unit/mL (3 mL) Insulin Pen 35 unit SUBCUT HS RF: 0 tramadol 50 mg Tablet 100 mg PO Q6H PRN (Reason: Pain) Qty: 15 RF: 0 Discontinued aspirin 325 mg Tablet 325 mg PO DAILY RF: 0 Discharge Orders: Discharge Order (Routine); Ordered 08/14/19 Ordered By: Shade Moise/Other Patient Handouts: Diabetes Type 2 Managing Admission Data Admit Date/Time: 08/08/19 00:51 Attending Provider: Shade Garcia Admit Provider: Ji Garcia Primary Care Provider: Dorothy Gómez Other Providers: Goldy Coronel ; Morris Schultz Other Interventions: Discharge Summary Assessment (RN) Last Done: 08/14/19 13:17 DC Date/Time DO NOT enter until pt leaves facility: 08/14/19 14:19 Coding Level of Care Code D/C Day Management >30 mins Diagnoses Osteomyelitis of thoracic spine M46.24 Leukocytosis D72.829 Fever R50.9 Staphylococcus aureus bacteremia R78.81; B95.61 Encephalopathy G93.40 Apnea R06.81 Diabetes E11.9 KEO (acute kidney injury) N17.9 CAD (coronary artery disease) I25.10 Hypertension I10 DVT prophylaxis Z29.9 Discharge planning issues Z02.9 Time Spent (min) 32
== END 2019-08-14 14:19 | DRG 638 ==
LOC: ED 20:51 → 2N 08-08 00:51 → SUATTDRO 08-08 00:51 → 2N 08-08 02:05